=== PATIENT | female | born 1965 | race Caucasian/White ===

== ENCOUNTER 2017-04-18 13:50 | Inpatient (IN) | payer OTHER ==
[~2017-04-18] VITALS: Ht 162.6 cm; Wt 92.0 kg
--- NOTE | 2017-04-18 14:22 | NUR ---
PT IS A 51 YEAR OLD FEMALE, PRESENTS TO ED WITH C/O OPEN BLISTER WOUND ON OUTER LATERAL SIDE OF RIGHT FOOT, X18 DAYS. PT REPORTS WENT TO PCP AND WAS GIVEN CEPHALEXIN AND HAS NOT WORKED. PT DENIES ANY N/V/D/C OR FEVER. SKIN IS WARM TO TOUCH ON RIGHT FOOT, PEDAL PULSES ARE PRESENT AND EQUAL, SKIN CAP REFILL IS BRISK AND EQUAL. SKIN SURROUNDING WOUND IS RED. PT REPORTS PAIN IN AREA. MSE PERFORMED BY DR. CID.
[2017-04-18 14:30] LABS: BASOPHIL % 0.4 % (0-2); PLATELET COUNT 361 x10^3mcL (130-400); RED CELL DISTRIBUTION WIDTH 15.6 % (11.5-14.5)
[2017-04-18 14:43] LABS: CALCIUM 9.2 mg/dL (8.5-10.1); CARBON DIOXIDE 25.5 mmol/L (21-32); CREATININE SERUM 1.4 mg/dL (0.6-1.0); POTASSIUM SERUM 4.8 mmol/L (3.5-5.1)
--- NOTE | 2017-04-18 15:18 | NUR ---
PT STATES UNABLE TO RECALL NAMES OF MEDICATIONS FOR ILLNESSES
--- NOTE | 2017-04-18 16:12 | NUR ---
REPORT CALLED NITHIN DUKE RN, SHE WILL ASSUME CARE PRIMARY RN POST TRASNFER.
[2017-04-18 16:22] LABS: T3 TOTAL 0.79 ng/mL
--- NOTE | 2017-04-18 16:45 | NUR ---
RECEIVED PT FROM ED NURSE IN NO ACUTE DISTRESS VIA WAGNER. RESPIRATIONS EVEN AND UNLABORED ON RA. DENIES PAIN AT THIS TIME. AAOX4. BELONGINGS WITH PT. BP 170/83, MAP 112, HR 110, DR MAIER IS AWARE OF VITALS. IVF RUNNING AT BEDSIDE. BED IN LOWEST POSITION. CALL LIGHT WITHIN REACH. WILL CONTINUE TO MONITOR.
[2017-04-18 16:47] LABS: FREE T4 1.06 ng/dL (0.76-1.46); FREE THYROXINE INDEX 3.1 ug/dL (1.4-4.5); T4(THYROXINE) 8.8 ug/dL (4.7-13.3)
[2017-04-18] MEDS ORDERED: AMLODIPINE BESY10 M2 PO (16:54)
[2017-04-18] MEDS ORDERED: INVOKANA300 MG PO (16:55)
[2017-04-18] MEDS ORDERED: ZESTRIL20 MG PO (16:55)
[2017-04-18] MEDS ORDERED: METFORMIN HCL1000 MG PO (16:56)
[2017-04-18] MEDS ORDERED: GABAPENTIN100 M2 PO (16:57)
[2017-04-18] MEDS ORDERED: LISINOPRIL20 MG PO (16:58)
[2017-04-18] MEDS ORDERED: OMEPRAZOLE20 M4 PO (16:58)
[2017-04-18] MEDS ORDERED: SIMVASTATIN20 M1 PO (16:58)
[2017-04-18] MEDS ORDERED: INVOKANA100 MG PO (16:59)
[2017-04-18 17:00] LABS: CHOLESTEROL/HDL RATIO 4.1; PHOSPHOROUS 3.7 mg/dL (2.5-4.9)
--- NOTE | 2017-04-18 17:46 | NUR ---
PT IS RESTING IN BED IN NO ACUTE DISTRESS. RESPIRATIONS EVEN AND UNLABORED ON RA. IVF INFUSING AT BEDSIDE. DENIES PAIN AT THIS TIME. DR MAIER AT BEDSIDE. CALL LIGHT WITHIN REACH. BED IN LOWEST POSITION. WILL ENDORSE TO NIGHT NURSE.
[2017-04-18 17:49] VITALS: BP 170/83
[2017-04-18 18:03] VITALS: Ht 162.6 cm; Wt 92.0 kg
[2017-04-18 18:39] LABS: UA SPECIFIC GRAVITY <=1.005 (1.005-1.035); microscopic required? YES; urine erythrocyte NEGATIVE (NEGATIVE)
[2017-04-18 19:01] LABS: AMPHETAMINE QUAL UR NONE DETECTED (NEG <=1000)
--- NOTE | 2017-04-18 19:15 | NUR ---
AAO X 4. SPEECH CLEAR AND APPROPRIATE. HOB ELEVATED 30 DEG. IVF OF NS AT 1OOML/HR. BREATHING EVEN AND UNLABORED ON ROOM AIR. RIGHT FOOT DRESSING CDI. WAS DEBRIDED THIS AFTERNOON PER REPORT.
[2017-04-18 21:14] VITALS: BP 151/81
--- NOTE | 2017-04-18 23:04 | NUR ---
DAUGHTER TO STAY THE NIGHT. OK WITH GINNY BENTON. PROVIDED WITH RECLINER.
--- NOTE | 2017-04-18 23:21 | NUR ---
EYES CLOSED, BREATHING EVEN AND UNLABORED.
[2017-04-19 05:59] VITALS: BP 131/76
[2017-04-19 06:41] LABS: BASOPHIL % 0.4 % (0-2); PLATELET COUNT 289 x10^3mcL (130-400); RED CELL DISTRIBUTION WIDTH 15.6 % (11.5-14.5)
[2017-04-19 06:43] LABS: CALCIUM 8.8 mg/dL (8.5-10.1); CARBON DIOXIDE 26.5 mmol/L (21-32); CHLORIDE SERUM 106 mmol/L (98-107); CREATININE SERUM 0.7 mg/dL (0.6-1.0); GFR1 > 60 mL/min; GLUCOSE SERUM 83 mg/dL (74-106); MAGNESIUM 1.9 mg/dL (1.8-2.4); PHOSPHOROUS 3.3 mg/dL (2.5-4.9); POTASSIUM SERUM 4.4 mmol/L (3.5-5.1); SODIUM SERUM 140 mmol/L (136-145)
[2017-04-19 08:25] VITALS: BP 138/78
--- NOTE | 2017-04-19 08:55 | NUR ---
PASSED MORNING MEDS PT TOLERATED WELL. IV PATENT TO LAC #20. NO DISTRESS AT MOMENT. DENIES PAIN. CALL LIGHT WITHIN REACH.
[2017-04-19 12:07] VITALS: BP 141/77
--- NOTE | 2017-04-19 12:27 | NUR ---
BLOOD GLUCOSE: 58 PT ASYMPTOMATIC. DENIES CHILLS, DIZZINESS, NAUSEA. PT DRANK 240ML OF ORANGE JUICE. PT EATING LUNCH AT MOMENT. PER DR. MAGAÑA DO NOT ADMINISTER D50 AND RECHECK BLOOD GLUCOSE 30 MINUTES AFTER MEAL. WILL CONTINUE TO MONITOR.
--- NOTE | 2017-04-19 13:30 | NUR ---
RECHECKED BLOOD GLUCOSE POST MEAL: 195. DR. MAGAÑA MADE AWARE OF RESULT. CALL LIGHT WITHIN REACH.
--- NOTE | 2017-04-19 15:38 | NUR ---
1. Continue CCHO-60 gm diet per doctor. 2. Recommend Vitamin C 500 mg BID to aid in optimal wound healing. 3. Recommend Zinc Sulfate 220 gm x10 days to aid in optimal wound healing. 4. Pt not interested in DM education.
--- NOTE | 2017-04-19 15:38 | NUR ---
Initial Nutrition Assessment Dx: Diabetic Foot PMHx: Type 2 DM, HTN, hypercholesterolemia PSHx: None Labs: BG 83, BUN 19 H, Cr 0.7, H/H 10.5/32 L; (04/18) LDL 110 H, A1C 8.3 H Meds: Colace, D50, Glucotrol, humulin R, Prilosec, NS IV, theragran, zofran Current Diet Order: CCHO-60 gm PO Intakes: (04/19) B: 75% Ht: 64", 5' 4". Wt: 203 lb, 92 kg. BMI: 34.8 kg/m2 (Obesity Class I) IBW: 120 lb, 55 kg. %IBW: 167%. Adj BW: 141 lb, 64 kg. UBW: 180 lb, 82 kg. Age: 51 Y/O F Food Allergies: None Skin: Intact. Herman . Edema: None GI: Active bowel sounds. Last BM x1 04/19 - Verified with pt. Pt found with R foot ulcer x2 weeks per doctor's notes. Per doctor's progress note 04/19, debridement of R foot diabetic ulcer completed yesterday, pain well controlled, family at bedside, assisting with translation, plan to continue IV antibiotics and provide diabetic education and foot ulcer care, podiatry recommends no surgical intervention at this time; Pt with R diabetic foot ulcer with central area of necrosis and surrounding erythema s/p debridement by podiatry. Pt is Filipino-speaking only, visitor at bedside, [facility] staff assisted in translation. Pt reported good PO intakes, tolerating diet well. RD noted some missing top and bottom teeth, offered chopped modified diet textures, however, pt declined, stated that current diet texture is good for now. Problem with: N: None. V: None. D: None. C: None. Problems with: Chewing: None. Swallowing: None. Current Appetite: Good Recent Weight Change: None per pt. % Weight Change: N/A Vitamin/Supplement use: None Diet at Home: Regular Physical Activity: Limited Education: RD offered DM nutrition education, pt declined, stated that she knows the diet well, appeared not too interested in further education. DM class flyer provided to pt. Estimated Nutritional Needs Based IBW 120 lb, 55 kg. Energy: 5254-0786 kcal/day (30-35 kcal/kg for Wound Healing) Protein: 66-83 gm/day (1.2-1.5 gm/kg for Wound Healing) Fluids: 1925 ml/day (30 ml/kg for Maintenance) or per doctor Nutrition Diagnosis Increase nutritional (energy, protein) needs related to altered skin integrity as evidenced by pt with R foot diabetic ulcer s/p debridement 04/18/17 Intervention 1. Continue CCHO-60 gm diet per doctor. 2. Recommend Vitamin C 500 mg BID to aid in optimal wound healing. 3. Recommend Zinc Sulfate 220 gm x10 days to aid in optimal wound healing. Monitor/Evaluate Goal: PO intakes to meet >75% of estimated needs; Wound healing protocol in place Monitor: PO intakes, tolerance to diet, labs (BG), skin integrity, GI function F/U in 7 days as LOW risk (04/26)
[2017-04-19 16:07] VITALS: BP 124/78
--- NOTE | 2017-04-19 17:45 | NUR ---
PT IN BED. NO DISTRESS NOTED. DENIES PAIN AT MOMENT. IV REMAINS PATENT TO LAC. CALL LIGHT WITHIN REACH.
--- NOTE | 2017-04-19 19:27 | NUR ---
SHIFT REASSESSMENT DONE.PATIENT ALERT AND ORIENTED,MAINLY FRISIAN,NEEDS ANTICIPATED.BREATHING EASY.R FOOT DRESSING INTACT.NS AT 100 CC/ HOUR LAC.TELE 1 SR.HAD BM TODAY.SCD ORDERED.NO PAIN AT THIS TIME.DAUGHTER VENITA AT BEDSIDE,STAYING FOR TONIGHT.SPPORTIVE OF CARE.CALL LIGHT IN REACH.
[2017-04-19 21:16] VITALS: BP 137/76
--- NOTE | 2017-04-19 21:30 | NUR ---
PATIENT PM MEDS GIVEN,2 KINDS OF ATB,NO INCIDENT.FAMILY AT BEDSIDE,1 DAUGHTER STAYING,GRAND KIDS STILL IN THE ROOM,GOING HOME SOON.
[2017-04-20 05:48] VITALS: BP 139/80
--- NOTE | 2017-04-20 05:53 | NUR ---
PATIENT AM MEDS GIVEN,SWALLOWS WELL.BLOOD SUGAR THIS AM 110.NO DISTRESS THIS SHIFT,NO CO PAIN.DAUGHTER AT BEDSIDE AND SUPPORTIVE OF CARE.CALL LITE IN REACH.
[2017-04-20 06:15] LABS: BASOPHIL % 0.5 % (0-2); PLATELET COUNT 313 x10^3mcL (130-400)
[2017-04-20 06:26] LABS: CALCIUM 9.5 mg/dL (8.5-10.1); CHLORIDE SERUM 105 mmol/L (98-107); CREATININE SERUM 0.8 mg/dL (0.6-1.0); GFR1 > 60 mL/min; GLUCOSE SERUM 120 mg/dL (74-106); POTASSIUM SERUM 4.6 mmol/L (3.5-5.1); SODIUM SERUM 140 mmol/L (136-145)
--- NOTE | 2017-04-20 07:15 | NUR ---
AAO X4.DENIES ANY PAIN/DISCOMFORT.LUNGS CLEAR.ON SR ON THE MONITOR.IVF NS GOING AT 100 ML/HR INFUSING WELL.R FOOT WITH DRESSING WRAPPED WITH ZORAN WRAP.CALL LIGHT WITHIN REACH.INSTRUCTED TO CALL FOR ANY PAIN/DISCOMFORT.WILL CONTINUE TO MONITOR PT.
[2017-04-20 07:44] LABS: RED CELL DISTRIBUTION WIDTH 15.4 % (11.5-14.5)
[2017-04-20] MEDS ORDERED: LAC PO (08:54)
[2017-04-20] MEDS ORDERED: KEFLEX500 M1 PO (08:55)
[2017-04-20 09:43] VITALS: BP 133/81
[2017-04-20 11:38] VITALS: BP 133/81
--- NOTE | 2017-04-20 12:51 | NUR ---
PT D/C TO HOME IV AND MONITOR D/C'D.WOUND CARE AND DRESSING CHANGE DONE TAUGHT DAUGHTER HOW TO DO DRESSING CHANGE,PT AND DAUGHTER VERBALIZES UNDERSTANDING.GAVE SUPPLIES FOR DRESSING CHANGE.DISCHARGE INSTRUCTION GIVEN VERBALIZES UNDERSTANDING.ALSO TOOK PICTURES ON WOUND.
--- NOTE | 2017-04-20 13:46 | NUR ---
WENT DOWN VIA WHEELCHAIR ACCOMPANIED BY DAUGHTER AND OFFICE MACHINE INSTALLER.
== END 2017-04-20 13:46 | disposition home or self-care (01) | DRG 380 ==
LOC: ED 13:50 → DU 15:13
PROVIDERS: Emergency Medicine; Family Medicine; ADMIT Family Medicine
PROC: 0JBQ0ZZ Excision of Right Foot Subcutaneous Tissue and Fascia, Open Approach (ICD-10-PCS; principal; 2017-04-18)
DX: E11.621 Type 2 diabetes mellitus with foot ulcer (principal); L97.519 Non-pressure chronic ulcer of other part of right foot with unspecified severity; N17.0 Acute kidney failure with tubular necrosis; E11.65 Type 2 diabetes mellitus with hyperglycemia; I10 Essential (primary) hypertension; E78.00 Pure hypercholesterolemia, unspecified; E11.42 Type 2 diabetes mellitus with diabetic polyneuropathy; G47.00 Insomnia, unspecified; K21.9 Gastro-esophageal reflux disease without esophagitis; Z79.84 Long term (current) use of oral hypoglycemic drugs; Z79.899 Other long term (current) drug therapy; E78.2 Mixed hyperlipidemia; D64.9 Anemia, unspecified; Z53.29 Procedure and treatment not carried out because of patient's decision for other reasons; Z82.49 Family history of ischemic heart disease and other diseases of the circulatory system; N39.0 Urinary tract infection, site not specified
CPT/HCPCS: 83880; 84439; J0295; J0690; J3490; J7030; Q0092

== ENCOUNTER 2017-10-30 12:56 | Inpatient (IN) | payer OTHER ==
[~2017-10-30] VITALS: Ht 162.6 cm; Wt 97.6 kg
[~2017-10-30 12:56] MED LIST: AMLODIPINE BESY10 M2 PO; GABAPENTIN100 M2 PO; INVOKANA100 MG PO; INVOKANA300 MG PO; KEFLEX500 M1 PO; LAC PO; LISINOPRIL20 MG PO; METFORMIN HCL1000 MG PO; OMEPRAZOLE20 M4 PO; SIMVASTATIN20 M1 PO; ZESTRIL20 MG PO
[2017-10-30 14:43] LABS: BASOPHIL % 0.3 % (0-2); PLATELET COUNT 342 x10^3mcL (130-400)
[2017-10-30 14:59] LABS: CALCIUM 9.6 mg/dL (8.5-10.1); CARBON DIOXIDE 22.6 mmol/L (21-32); CHLORIDE SERUM 103 mmol/L (98-107); CREATININE SERUM 0.9 mg/dL (0.6-1.0); GFR1 > 60 mL/min; GLUCOSE SERUM 188 mg/dL (74-106); POTASSIUM SERUM 4.3 mmol/L (3.5-5.1); SODIUM SERUM 138 mmol/L (136-145)
[2017-10-30 15:05] LABS: CK-MB 0.7 ng/mL (0-3.6)
[2017-10-30 15:15] LABS: ALBUMIN 3.7 g/dL (3.4-5.0); ALKALINE PHOSPHATASE 142 U/L (46-116); ALT/SGPT 17 U/L (14-59); AST/SGOT 11 U/L (15-37); BILIRUBIN TOTAL 0.3 mg/dL (0.20-1.00); C REACTIVE PROTEIN 11.4 mg/dL (<=0.9)
[2017-10-30 15:17] LABS: TOTAL PROTEIN, SERUM 8.7 g/dL (6.4-8.2)
[2017-10-30 15:29] LABS: CHOLESTEROL/HDL RATIO 2.7; MAGNESIUM 2.2 mg/dL (1.8-2.4); PHOSPHOROUS 3.1 mg/dL (2.5-4.9)
[2017-10-30 15:35] LABS: FREE T4 1.25 ng/dL (0.76-1.46); FREE THYROXINE INDEX 2.8 ug/dL (1.4-4.5); T4(THYROXINE) 8.8 ug/dL (4.7-13.3)
[2017-10-30] MEDS ORDERED: METFORMIN HYDR500 M1 (15:42)
[2017-10-30] MEDS ORDERED: ZESTRIL2.5 MG (15:42)
[2017-10-30] MEDS ORDERED: NOVOLIN R100 U/ML (15:42)
[2017-10-30 15:59] VITALS: BP 139/87
[2017-10-30 15:59] LABS: ERYTHROCYTE SED RATE 78 mm/hr (0-20)
[2017-10-30 16:16] VITALS: BP 154/82
[2017-10-30] MEDS ORDERED: FERROUS SULFAT325 M2 PO (17:35)
[2017-10-30 20:08] LABS: microscopic required? YES; urine erythrocyte TRACE (NEGATIVE)
[2017-10-30 20:18] LABS: AMPHETAMINE QUAL UR NONE DETECTED (NEG <=1000)
[2017-10-30 20:53] VITALS: BP 139/75
[2017-10-31 05:34] VITALS: BP 126/71
[2017-10-31 07:54] LABS: BASOPHIL % 0.4 % (0-2); PLATELET COUNT 304 x10^3mcL (130-400)
[2017-10-31 07:55] LABS: RED CELL DISTRIBUTION WIDTH 14.8 % (11.5-14.5)
[2017-10-31 08:23] LABS: CALCIUM 8.7 mg/dL (8.5-10.1); CARBON DIOXIDE 25.1 mmol/L (21-32); CHLORIDE SERUM 105 mmol/L (98-107); CREATININE SERUM 0.7 mg/dL (0.6-1.0); GFR1 > 60 mL/min; GLUCOSE SERUM 66 mg/dL (74-106); POTASSIUM SERUM 3.9 mmol/L (3.5-5.1); SODIUM SERUM 140 mmol/L (136-145)
[2017-10-31 09:46] VITALS: BP 124/74
[2017-10-31 14:21] VITALS: BP 132/71
[2017-10-31 19:09] VITALS: BP 116/74
[2017-10-31 21:29] VITALS: BP 125/78
[2017-11-01 06:14] VITALS: BP 138/82
[2017-11-01 06:14] LABS: BASOPHIL % 0.5 % (0-2); PLATELET COUNT 325 x10^3mcL (130-400)
[2017-11-01 06:27] LABS: CALCIUM 9.2 mg/dL (8.5-10.1); CHLORIDE SERUM 105 mmol/L (98-107); CREATININE SERUM 0.8 mg/dL (0.6-1.0); GFR1 > 60 mL/min; GLUCOSE SERUM 150 mg/dL (74-106); SODIUM SERUM 140 mmol/L (136-145)
[2017-11-01 06:53] LABS: RED CELL DISTRIBUTION WIDTH 15.2 % (11.5-14.5)
[2017-11-01] MEDS ORDERED: NEPHRO-VITE VITA1 EA PO (08:18)
[2017-11-01 09:00] VITALS: BP 135/86
[2017-11-01 09:14] LABS: T3 TOTAL 0.92 ng/mL
[2017-11-01] MEDS ORDERED: KEFLEX750 M1 PO (11:20)
[2017-11-01] MEDS ORDERED: LAC PO (11:21)
[2017-11-01 13:09] VITALS: BP 135/86
== END 2017-11-01 14:03 | disposition home or self-care (01) | DRG 420 ==
LOC: ED 12:56 → DU 14:57 → MU 14:57 → DU 15:57 → MU 10-31 23:55
PROVIDERS: Family Medicine Sports Medicine; Specialist
DX: E11.621 Type 2 diabetes mellitus with foot ulcer (principal); N17.0 Acute kidney failure with tubular necrosis; E11.610 Type 2 diabetes mellitus with diabetic neuropathic arthropathy; I10 Essential (primary) hypertension; E86.0 Dehydration; E78.5 Hyperlipidemia, unspecified; E11.42 Type 2 diabetes mellitus with diabetic polyneuropathy; K21.9 Gastro-esophageal reflux disease without esophagitis; D64.9 Anemia, unspecified; L03.115 Cellulitis of right lower limb; E11.649 Type 2 diabetes mellitus with hypoglycemia without coma; Z79.4 Long term (current) use of insulin
CPT/HCPCS: 36600; 83880; 84439; 90715; 97110-GP; 97116-GP; J1815; J2543; J3490; J7030; Q0092

== ENCOUNTER 2019-12-08 18:46 | Inpatient (IN) | payer OTHER ==
[~2019-12-08] VITALS: Ht 170.2 cm; Wt 103.1 kg
[~2019-12-08 18:46] MED LIST changes: +FERROUS SULFAT325 M2 PO; +KEFLEX750 M1 PO; +METFORMIN HYDR500 M1; +NEPHRO-VITE VITA1 EA PO; +NOVOLIN R100 U/ML; +ZESTRIL2.5 MG
[2019-12-08 18:52] VITALS: Ht 170.2 cm; Wt 103.1 kg
[2019-12-08 20:40] LABS: BASOPHIL % 0 % (0-2); PLATELET COUNT 448 x10^3mcL (130-400); RED CELL DISTRIBUTION WIDTH 16.7 % (11.5-14.5)
[2019-12-08 21:00] LABS: BILIRUBIN TOTAL 0.6 mg/dL (0.20-1.00); CARBON DIOXIDE 17.8 mmol/L (21-32); CREATININE SERUM 1.9 mg/dL (0.6-1.0); POTASSIUM SERUM 4.3 mmol/L (3.5-5.1); T4(THYROXINE) 5.2 ug/dL (4.7-13.3)
[2019-12-08 21:02] LABS: ALBUMIN 1.5 g/dL (3.4-5.0)
[2019-12-08 21:09] LABS: CALCIUM 9.5 mg/dL (8.5-10.1)
[2019-12-08] MEDS ORDERED: ULTRAM50 MG PO (21:57)
[2019-12-08] MEDS ORDERED: ACTOS30 M1 PO (21:57)
[2019-12-08] MEDS ORDERED: VITAMIN D22000 I1 PO (21:57)
[2019-12-08] MEDS ORDERED: MOT600 PO (21:57)
[2019-12-08] MEDS ORDERED: AMOXICILLIN875 MG PO (21:58)
[2019-12-08] MEDS ORDERED: CIPRO500 MG PO (21:58)
[2019-12-08] MEDS ORDERED: BASAGLAR K100 UNIT/1 SQ (21:58)
[2019-12-08 22:43] LABS: microscopic required? YES; urine erythrocyte NEGATIVE (NEGATIVE)
[2019-12-08 22:57] LABS: AMPHETAMINE QUAL UR NONE DETECTED (See below)
[2019-12-08 23:23] VITALS: BP 107/48
[2019-12-09 10:20] VITALS: BP 108/52
[2019-12-09 10:29] VITALS: BP 105/47
[2019-12-09 12:53] VITALS: BP 99/55
[2019-12-09 13:39] LABS: CALCIUM 8.8 mg/dL (8.5-10.1); CARBON DIOXIDE 18.1 mmol/L (21-32); CREATININE SERUM 1.4 mg/dL (0.6-1.0); MAGNESIUM 1.7 mg/dL (1.8-2.4); PHOSPHOROUS 5.4 mg/dL (2.5-4.9); POTASSIUM SERUM 4.3 mmol/L (3.5-5.1)
[2019-12-09 14:31] LABS: PLATELET COUNT 436 x10^3mcL (130-400); RED CELL DISTRIBUTION WIDTH 17.5 % (11.5-14.5)
[2019-12-09 14:42] LABS: BAND NEUTROPHIL 6 % (0-10); BASOPHIL 0 % (0-2); MONOCYTE 4 % (0-7); SEGMENTED NEUTROPHILS 87 % (37-75)
[2019-12-09 14:43] LABS: rbc morphology (normal/abnorm) ABNORMAL (NORMAL)
[2019-12-09 20:54] VITALS: BP 97/57
[2019-12-10 05:08] VITALS: BP 103/59
[2019-12-10 06:36] LABS: BASOPHIL % 0.1 % (0-2); PLATELET COUNT 382 x10^3mcL (130-400)
[2019-12-10 06:48] LABS: RED CELL DISTRIBUTION WIDTH 17.3 % (11.5-14.5)
[2019-12-10 07:19] LABS: CARBON DIOXIDE 20.7 mmol/L (21-32); CREATININE SERUM 1.4 mg/dL (0.6-1.0); MAGNESIUM 1.8 mg/dL (1.8-2.4); PHOSPHOROUS 4.7 mg/dL (2.5-4.9); POTASSIUM SERUM 4.4 mmol/L (3.5-5.1)
[2019-12-10 07:31] VITALS: BP 130/54
[2019-12-10 08:14] LABS: rbc morphology (normal/abnorm) ABNORMAL (NORMAL)
[2019-12-10 11:46] VITALS: BP 108/63
[2019-12-10 12:44] VITALS: BP 121/59
[2019-12-10 16:29] VITALS: BP 112/69
[2019-12-10 20:44] VITALS: BP 118/64
[2019-12-11 05:49] VITALS: BP 133/77
[2019-12-11 07:45] LABS: BASOPHIL % 0.6 % (0-2)
[2019-12-11 08:04] LABS: CREATININE SERUM 1.1 mg/dL (0.6-1.0); MAGNESIUM 1.5 mg/dL (1.8-2.4); POTASSIUM SERUM 4.1 mmol/L (3.5-5.1)
[2019-12-11 08:16] LABS: PLATELET COUNT 478 x10^3mcL (130-400)
[2019-12-11 08:29] VITALS: BP 131/75
[2019-12-11 12:03] VITALS: BP 142/79
[2019-12-11 18:29] VITALS: BP 115/83
[2019-12-11 20:48] VITALS: BP 129/69
[2019-12-12 05:07] VITALS: BP 130/73
[2019-12-12 06:52] LABS: BASOPHIL % 0 % (0-2); PLATELET COUNT 466 x10^3mcL (130-400); RED CELL DISTRIBUTION WIDTH 17.2 % (11.5-14.5)
[2019-12-12 06:56] LABS: CALCIUM 8.5 mg/dL (8.5-10.1); CARBON DIOXIDE 23.8 mmol/L (21-32); CHLORIDE SERUM 105 mmol/L (98-107); CREATININE SERUM 0.8 mg/dL (0.6-1.0); GFR1 > 60 mL/min; GLUCOSE SERUM 167 mg/dL (74-106); MAGNESIUM 1.6 mg/dL (1.8-2.4); POTASSIUM SERUM 3.3 mmol/L (3.5-5.1); SODIUM SERUM 139 mmol/L (136-145)
[2019-12-12 08:03] VITALS: BP 121/67
[2019-12-12 12:36] VITALS: BP 111/68
[2019-12-12 16:29] VITALS: BP 120/63
[2019-12-12 20:40] VITALS: BP 108/63
[2019-12-13 05:30] VITALS: BP 132/72
[2019-12-13 07:01] LABS: BASOPHIL % 0.3 % (0-2)
[2019-12-13 07:21] LABS: PLATELET COUNT 460 x10^3mcL (130-400); RED CELL DISTRIBUTION WIDTH 17.4 % (11.5-14.5)
[2019-12-13 07:26] LABS: CALCIUM 8.7 mg/dL (8.5-10.1); CARBON DIOXIDE 24.7 mmol/L (21-32); CHLORIDE SERUM 104 mmol/L (98-107); CREATININE SERUM 0.8 mg/dL (0.6-1.0); GFR1 > 60 mL/min; GLUCOSE SERUM 137 mg/dL (74-106); POTASSIUM SERUM 3.4 mmol/L (3.5-5.1); SODIUM SERUM 139 mmol/L (136-145)
[2019-12-13 07:41] VITALS: BP 132/74
[2019-12-13 11:52] VITALS: BP 142/78
[2019-12-13 16:00] VITALS: BP 131/71
[2019-12-14 00:41] VITALS: BP 143/80
[2019-12-14 05:13] VITALS: BP 136/59
[2019-12-14 06:34] LABS: BASOPHIL % 0.4 % (0-2)
[2019-12-14 06:47] LABS: CALCIUM 8.8 mg/dL (8.5-10.1); CARBON DIOXIDE 26.9 mmol/L (21-32); CHLORIDE SERUM 104 mmol/L (98-107); CREATININE SERUM 0.8 mg/dL (0.6-1.0); GFR1 > 60 mL/min; GLUCOSE SERUM 139 mg/dL (74-106); POTASSIUM SERUM 3.2 mmol/L (3.5-5.1); SODIUM SERUM 140 mmol/L (136-145)
[2019-12-14 07:04] LABS: PLATELET COUNT 529 x10^3mcL (130-400); RED CELL DISTRIBUTION WIDTH 17.2 % (11.5-14.5)
[2019-12-14 12:27] VITALS: BP 96/57
[2019-12-14 16:17] VITALS: BP 103/58
[2019-12-14 19:33] VITALS: BP 104/55
[2019-12-15 06:01] VITALS: BP 124/57
[2019-12-15 07:08] LABS: BASOPHIL % 0.3 % (0-2)
[2019-12-15 07:11] LABS: CALCIUM 8.3 mg/dL (8.5-10.1); CARBON DIOXIDE 24.2 mmol/L (21-32); CHLORIDE SERUM 107 mmol/L (98-107); GFR1 > 60 mL/min; GLUCOSE SERUM 105 mg/dL (74-106); POTASSIUM SERUM 4.1 mmol/L (3.5-5.1); SODIUM SERUM 141 mmol/L (136-145)
[2019-12-15 07:34] VITALS: BP 120/52
[2019-12-15 09:47] LABS: PLATELET COUNT 528 x10^3mcL (130-400)
[2019-12-15 11:54] VITALS: BP 141/51
[2019-12-15 15:42] VITALS: BP 108/55
[2019-12-15 20:24] VITALS: BP 131/65
[2019-12-16 05:30] VITALS: BP 136/61
[2019-12-16 07:02] LABS: CALCIUM 8.4 mg/dL (8.5-10.1); CARBON DIOXIDE 24.3 mmol/L (21-32); CHLORIDE SERUM 108 mmol/L (98-107); CREATININE SERUM 0.8 mg/dL (0.6-1.0); GFR1 > 60 mL/min; GLUCOSE SERUM 124 mg/dL (74-106); SODIUM SERUM 142 mmol/L (136-145)
[2019-12-16 07:36] VITALS: BP 138/56
[2019-12-16 07:38] LABS: BASOPHIL % 0.5 % (0-2)
[2019-12-16 08:38] LABS: PLATELET COUNT 560 x10^3mcL (130-400); RED CELL DISTRIBUTION WIDTH 17.9 % (11.5-14.5)
[2019-12-16] MEDS ORDERED: BACTRIM DS1 TAB PO (11:00)
[2019-12-16] MEDS ORDERED: ASPIRIN ADULT L81 M3 PO (11:01)
[2019-12-16] MEDS ORDERED: NORCO1 TA2 PO (11:04)
[2019-12-16] MEDS ORDERED: AMOX/CLAV POT1 TAB PO (11:08)
[2019-12-16 12:18] VITALS: BP 129/61
[2019-12-16 12:45] VITALS: BP 138/56
== END 2019-12-16 14:00 | disposition home health service (06) | DRG 710 ==
LOC: ED 18:46 → DU 21:45 → MU 12-15 21:47
PROVIDERS: Emergency Medicine; Orthopaedic Surgery; Student in an Organized Health Care Education/Training Program; ADMIT Internal Medicine
PROC: 30233N1 Transfusion of Nonautologous Red Blood Cells into Peripheral Vein, Percutaneous Approach (ICD-10-PCS; 2019-12-09)
PROC: 0Y6H0Z1 Detachment at Right Lower Leg, High, Open Approach (ICD-10-PCS; principal; 2019-12-09 04:00)
PROC: 0QBJ0ZZ Excision of Right Fibula, Open Approach (ICD-10-PCS; 2019-12-11)
PROC: 0QBG0ZZ Excision of Right Tibia, Open Approach (ICD-10-PCS; 2019-12-11)
PROC: 0Y6H0Z1 Detachment at Right Lower Leg, High, Open Approach (ICD-10-PCS; 2019-12-14)
DX: A41.9 Sepsis, unspecified organism (principal); N17.0 Acute kidney failure with tubular necrosis; A48.0 Gas gangrene; E11.52 Type 2 diabetes mellitus with diabetic peripheral angiopathy with gangrene; E11.65 Type 2 diabetes mellitus with hyperglycemia; E66.01 Morbid (severe) obesity due to excess calories; I10 Essential (primary) hypertension; I45.10 Unspecified right bundle-branch block; K42.9 Umbilical hernia without obstruction or gangrene; E78.5 Hyperlipidemia, unspecified; D63.8 Anemia in other chronic diseases classified elsewhere; E11.610 Type 2 diabetes mellitus with diabetic neuropathic arthropathy; E11.42 Type 2 diabetes mellitus with diabetic polyneuropathy; E11.69 Type 2 diabetes mellitus with other specified complication; E78.00 Pure hypercholesterolemia, unspecified; M86.8X7 Other osteomyelitis, ankle and foot; B95.1 Streptococcus, group B, as the cause of diseases classified elsewhere; B95.61 Methicillin susceptible Staphylococcus aureus infection as the cause of diseases classified elsewhere; Z79.4 Long term (current) use of insulin; Z79.899 Other long term (current) drug therapy; Z82.49 Family history of ischemic heart disease and other diseases of the circulatory system; Z68.29 Body mass index [BMI] 29.0-29.9, adult
CPT/HCPCS: 82962; 90715; 94150; 97112-GP; C1713; G0378; J0295; J0690; J1170; J1815; J1885; J2175; J2250; J2270; J2405; J2543; J2704; J3010; J3370; J3475; J3490; J7030; J7040; J7050; J7120; P9016; Q0092; Q9967

== ENCOUNTER 2019-12-19 14:11 | Emergency (ER) | payer OTHER ==
[~2019-12-19] VITALS: Ht 157.5 cm; Wt 99.8 kg
[~2019-12-19 14:11] MED LIST changes: +ACTOS30 M1 PO; +AMOX/CLAV POT1 TAB PO; +AMOXICILLIN875 MG PO; +ASPIRIN ADULT L81 M3 PO; +BACTRIM DS1 TAB PO; +BASAGLAR K100 UNIT/1 SQ; +CIPRO500 MG PO; +MOT600 PO; +NORCO1 TA2 PO; +ULTRAM50 MG PO; +VITAMIN D22000 I1 PO
[2019-12-19 14:18] VITALS: BP 135/77; Ht 157.5 cm; Wt 99.8 kg
== END 2019-12-19 15:00 | disposition home or self-care (01) ==
LOC: ED 14:11
DX: S81.001A Unspecified open wound, right knee, initial encounter (principal); Z89.611 Acquired absence of right leg above knee; X58.XXXA Exposure to other specified factors, initial encounter; Y93.89 Activity, other specified; Y92.89 Other specified places as the place of occurrence of the external cause; Y99.8 Other external cause status